=== PATIENT | female | born 1950 | race Hispanic/Latino ===

== ENCOUNTER 2021-08-23 06:24 | Day surgery (SDC) | payer MEDICARE ==
[2021-08-23 07:51] LABS: Mean Corpuscular HGB Conc 35 % (30-34); Mean Corpuscular Volume 87 fl (79-97); Platelet Count 193 K/mm3 (140-440); Red Blood Count 4.62 M/mm3 (3.65-5.03)
[2021-08-23 07:59] LABS: INR 0.93 (0.87-1.13)
[2021-08-23] MEDS ORDERED: SODIUM CHLORIDE 0.9% 500 ML 500 ML IV SCH (08:00)
[2021-08-23 08:09] LABS: Blood Urea Nitrogen 22 mg/dL (7-17); Calcium 9.3 mg/dL (8.4-10.2); Hemolysis Index 8
[2021-08-23 08:14] LABS: BUN/Creatinine Ratio 37
[2021-08-23] MEDS ORDERED: HEPARIN/NS 5000 UNIT/500ML 1,000 ML IR ONE (08:31)
[2021-08-23] MEDS ORDERED: NITROGLYCERIN SYRINGE 3 ML ONE (08:32)
[2021-08-23] MEDS: MIDAZOLAM 2 MG/2 ML INJ ONE ×2 (09:05→09:19)
[2021-08-23] MEDS: fentaNYL 100 MCG/2 ML INJ ONE ×2 (09:05→09:20)
[2021-08-23] MEDS: LIDOCAINE (1%) 10 MG/1 ML VIAL 20 ML MDV ONE ×2 (09:06→09:21)
[2021-08-23] MEDS: HEPARIN 10,000 UNITS/10 ML VIAL ONE ×2 (09:09→09:22)
[2021-08-23] MEDS: VERAPAMIL 5 MG/2 ML INJ ONE ×2 (09:11→09:22)
[2021-08-23] MEDS ORDERED: HYDROcodone/ACETAMINOPHEN 5-325 MG TAB PO PRN (10:00)
[2021-08-23] MEDS ORDERED: traMADol 50 MG TAB PO PRN (10:00)
--- NOTE | 2021-08-23 11:08 | Short Stay Summary ---
Short Stay Documentation Date of service: 08/23/21 - History H&P: obtained from office - Allergies and Medications Current Medications: Allergies hydrochlorothiazide [From Benicar HCT] Allergy (Unknown, Unverified 08/23/21 06:57) Unknown olmesartan [From Benicar HCT] Allergy (Unknown, Unverified 08/23/21 06:57) Unknown Home Medications Medication Instructions Recorded Confirmed Last Taken Type Ascorbic Acid [Vitamin C with Rita 1,000 mg PO DAILY 08/23/21 08/23/21 08/22/21 History Hips] 1 tab Aspirin [Aspirin BABY CHEW TAB] 81 mg PO DAILY 08/23/21 08/23/21 08/22/21 History 1 tab Baclofen [Lioresal] 10 mg PO DAILY 08/23/21 08/23/21 Unknown History Bumetanide 1 mg PO DAILY 08/23/21 08/23/21 08/22/21 History 1 tab Bumetanide 1 tab PO DAILY 08/23/21 08/23/21 08/22/21 History 1 tab Clopidogrel [Plavix] 75 mg PO QDAY 08/23/21 08/23/21 08/22/21 History 1 tab Clopidogrel [Plavix] 75 mg PO QDAY 08/23/21 08/23/21 08/22/21 History 1 tab Fish Oil/Borage/Flax/Om3,6,9 1 2,000 mg PO DAILY 08/23/21 08/23/21 08/22/21 History [[place] 3-6-9 1,200 mg Softgel] 1 tab Gabapentin [Neurontin] 300 mg PO Q8HR 08/23/21 08/23/21 Unknown History Levothyroxine [Synthroid] 88 mcg PO QAM 08/23/21 08/23/21 08/23/21 History 1 tab Meloxicam [Mobic] 7.5 mg PO QDAY 08/23/21 08/23/21 Unknown History Potassium Chloride [K-Dur] 20 meq PO QDAY 08/23/21 08/23/21 08/22/21 History 1 tab carvediloL [Coreg] 6.25 mg PO BID 08/23/21 08/23/21 08/22/21 History 2 tabs Active Medications Hydrocodone Bitart/Acetaminophen (Hydrocodone/Acetaminophen 5-325 Mg Tab) 1 each PO Q4H PRN PRN Reason: Pain, Moderate (4-6) Sodium Chloride (Nacl 0.9% 500 Ml) 500 mls @ 50 mls/hr IV DIRECT [place] Stop: 08/23/21 18:00 Last Admin: 08/23/21 09:13 Dose: 0 mls Tramadol HCl (Tramadol 50 Mg Tab) 50 mg PO Q4H PRN PRN Reason: Pain, Mild (1-3) - Physical exam Integumentary: other (Dressing clean dry and intact with no signs of bleeding or hematoma) - Brief post op/procedure progress note Date of procedure: 08/23/21 Pre-op diagnosis: Claudication Post-op diagnosis: same Anesthesia: local Estimated blood loss: minimal - Hospital course Hospital course: Patient presents today for peripheral angiogram. Patient procedure well with no complication. See report for full details. Patient to be discharged home with follow-up in the office as an outpatient. Plan of care discussed with patient who verbalized understanding and acknowledgment - Disposition Condition at discharge: Good Disposition: 01 HOME / SELF CARE / HOMELESS - Discharge Diagnoses (1) Claudication in peripheral vascular disease Status: Acute (2) Coronary artery disease Status: Acute (3) Hypertension Status: Acute (4) Hyperlipidemia Status: Acute (5) S/P CABG (coronary artery bypass graft) Status: Acute (6) Morbidly obese Status: Acute Short Stay Discharge Plan Activity: advance as tolerated Diet: low fat, low cholesterol, low salt Wound: keep clean and dry, per your surgeon's advice Follow up with: DR DENNIS [Other] - 7 Days QUIQUE SCALES MD [Staff Physician] - 09/20/21 1:45 pm (Patient has a follow- up appointment on 09/20/2021 at 1:45 PM in [place] location. Phone #[phone])
--- NOTE | 2021-08-23 13:48 | Cardiac Catherization Report ---
DATE OF SERVICE: 08/23/2021 PERIPHERAL ANGIOGRAM CLINICAL INFORMATION: A 71-year-old female with morbid obesity, coronary artery disease with bypass, hypertension, hyperlipidemia, has claudication symptoms with abnormal monophasic flow in the left lower extremity. She is here for peripheral angiogram. Procedure was done with moderate sedation started at 9:00, finished at 9:15, 15 minutes of moderate sedation. DESCRIPTION OF PROCEDURE: Procedure was done via the right radial artery, sterile technique and local anesthesia. A 6-Macanese radial sheath inserted. Pigtail catheter was placed in distal abdominal aorta and runoff was done, which revealed bilateral renal arteries patent, distal abdominal aorta patent, right common iliac patent, right external and internal iliac patent, right CIRCUIT DESIGN ENGINEER patent, right SFA patent with 3-vessel runoff, left common iliac mid has an 80% lesion. Left external and internal iliac patent, left common femoral artery patent, left SFA patent with 3-vessel runoff. Catheter was taken over a guidewire. A 6-Macanese radial sheath was discontinued. Radial band applied. No hematoma, no bleeding. SUMMARY: 1. Bilateral renal arteries patent, distal abdominal aorta patent, left common iliac mid 80% lesion with left external and internal iliac patent, left common femoral artery patent, left SFA patent with 3-vessel runoff: 2. Right common iliac, internal iliac, external iliac and CIRCUIT DESIGN ENGINEER patent with right SFA and 3-vessel runoff patent with bilateral popliteal patent. 3. The patient has failed medical therapy on aspirin and Plavix. RECOMMENDATIONS: The patient will come for a staged BUTTON CUTTER of the left common iliac stenting. TID: [id number] RECEIPT: [id number] ENRIQUE/[place]/MELANIE
[2021-08-23 14:45] VITALS: BP 127/51
--- NOTE | 2021-08-25 15:10 | Electrocardiograph Report ---
[facility] Test Date: 2021-08-23 Test Time: 07:52:52 Pat Name: CALLIE SHELDON Department: Room: Gender: F Supervisor Braiding: FELIPE : 1950 Requested By: QUIQUE SCALES Order Number: [id number] Reading MD: Eric Ross Measurements Intervals [place] Rate: 63 P: 61 OR: 190 QRS: 17 QRSD: 107 T: 90 QT: 448 QTc: 459 Interpretive Statements Sinus rhythm No previous ECG available for comparison Electronically Signed On 08-25-2021 15:10:07 EDT by Eric Ross
== END 2021-08-23 06:25 | disposition home or self-care (01) ==
LOC: CATHLABREC 06:24
PROVIDERS: ATTEND Internal Medicine
DX: I70.212 Atherosclerosis of native arteries of extremities with intermittent claudication, left leg (principal); I25.10 Atherosclerotic heart disease of native coronary artery without angina pectoris; E78.49 Other hyperlipidemia; I10 Essential (primary) hypertension; E66.01 Morbid (severe) obesity due to excess calories; Z95.1 Presence of aortocoronary bypass graft; Z79.899 Other long term (current) drug therapy; Z79.82 Long term (current) use of aspirin; Z88.8 Allergy status to other drugs, medicaments and biological substances; Z68.41 Body mass index [BMI] 40.0-44.9, adult
CPT/HCPCS: 36200; 36415; 75716; 80048; 85027; 85610; 93005; 99156; C1894; J1644; J1815; J2250; J3010; J7040; Q9967

== ENCOUNTER 2021-09-20 07:13 | Day surgery (SDC) | payer MEDICARE ==
--- NOTE | 2021-09-19 15:56 | Short Stay Summary ---
Short Stay Documentation Date of service: 09/20/21 Narrative H&P: 71-year-old female with morbid obesity coronary arterial disease hypertension hyperlipidemia has claudication left leg. Ultrasound shows mild stenosis in the right leg calcified. Left leg appears to be monophasic flow with suspected a ortic iliac stenosis. Abdominal aorta reveals some mild hepatic steosis referral to gi. Negative stress test normal function echocardiogram will hold do a peripheral angiogram given patient's claudication symptoms despite dual antiplatelet therapy. Patient failed dual antiplatelet therapy. Patient had peripheral angiogram on 08/23/2021 to have left common iliac mid 80% lesion. Patient presents today for staged SENSOR TECHNICIAN - History Past Medical History: CAD, hypertension, hyperlipidemia, hypothyroidism, other (Chronic diastolic heart failure) Past Surgical History: CABG Social history: smoking (Former) - Allergies and Medications Current Medications: Allergies hydrochlorothiazide [From Benicar HCT] Allergy (Unknown, Unverified 08/23/21 06:57) Unknown olmesartan [From Benicar HCT] Allergy (Unknown, Unverified 08/23/21 06:57) Unknown Home Medications Medication Instructions Recorded Confirmed Last Taken Type Ascorbic Acid [Vitamin C with Rita 1,000 mg PO DAILY 08/23/21 08/23/21 08/22/21 History Hips] 1 tab Aspirin [Aspirin BABY CHEW TAB] 81 mg PO DAILY 08/23/21 08/23/21 08/22/21 History 1 tab Baclofen [Lioresal] 10 mg PO DAILY 08/23/21 08/23/21 Unknown History Bumetanide 1 mg PO DAILY 08/23/21 08/23/21 08/22/21 History 1 tab Bumetanide 1 tab PO DAILY 08/23/21 08/23/21 08/22/21 History 1 tab Clopidogrel [Plavix] 75 mg PO QDAY 08/23/21 08/23/21 08/22/21 History 1 tab Clopidogrel [Plavix] 75 mg PO QDAY 08/23/21 08/23/21 08/22/21 History 1 tab Fish Oil/Borage/Flax/Om3,6,9 1 2,000 mg PO DAILY 08/23/21 08/23/21 08/22/21 History [[place] 3-6-9 1,200 mg Softgel] 1 tab Gabapentin [Neurontin] 300 mg PO Q8HR 08/23/21 08/23/21 Unknown History Levothyroxine [Synthroid] 88 mcg PO QAM 08/23/21 08/23/21 08/23/21 History 1 tab Meloxicam [Mobic] 7.5 mg PO QDAY 08/23/21 08/23/21 Unknown History Potassium Chloride [K-Dur] 20 meq PO QDAY 08/23/21 08/23/21 08/22/21 History 1 tab carvediloL [Coreg] 6.25 mg PO BID 08/23/21 08/23/21 08/22/21 History 2 tabs - Physical exam General appearance: no acute distress Integumentary: no rash HEENT: PERRLA Heart: Regular rate, Normal S1, Normal S2 Gastrointestinal: normal Extremities: no ischemia, no No edema Neurological: Normal speech - Brief post op/procedure progress note Date of procedure: 09/20/21 Pre-op diagnosis: PVD Post-op diagnosis: same Anesthesia: local Estimated blood loss: 50-100ml - Hospital course Hospital course: Patient underwent successful SENSOR TECHNICIAN of left common iliac artery. Patient tolerated procedure well with no complication. Patient continue dual antiplatelet therapy and follow-up in the office - Disposition Condition at discharge: Good Disposition: 01 HOME / SELF CARE / HOMELESS - Discharge Diagnoses (1) Claudication in peripheral vascular disease Status: Acute (2) Coronary artery disease Status: Acute (3) Hyperlipidemia Status: Acute (4) Hypertension Status: Acute (5) Morbidly obese Status: Acute (6) S/P CABG (coronary artery bypass graft) Status: Acute Short Stay Discharge Plan Activity: advance as tolerated Diet: low fat, low cholesterol, low salt Wound: keep clean and dry, per your surgeon's advice Follow up with: QUIQUE SCALES MD [Staff Physician] - 7 Days (follow up on 10/10/2021 at 1 PM in our [place] location)
[2021-09-20] MEDS ORDERED: HEPARIN/NS 5000 UNIT/500ML 1,000 ML IR ONE (07:59)
[2021-09-20] MEDS ORDERED: SODIUM CHLORIDE 0.9% 500 ML 500 ML IV SCH (08:00)
[2021-09-20 08:02] LABS: INR 0.92 (0.87-1.13)
[2021-09-20 08:03] LABS: Partial Thromboplastin Time 35.3 Sec. (24.2-36.6)
[2021-09-20] MEDS: HEPARIN 10,000 UNITS/10 ML VIAL ONE ×2 (08:11→09:33)
[2021-09-20] MEDS: LIDOCAINE (1%) 10 MG/1 ML VIAL 20 ML MDV ONE ×2 (08:12→09:25)
[2021-09-20] MEDS ORDERED: HEPARIN/NS 5000 UNIT/500ML 500 ML IR ONE (08:32)
[2021-09-20] MEDS ORDERED: SODIUM CHLORIDE 0.9% 1000 ML 1,000 ML ONE (08:58)
[2021-09-20] MEDS ORDERED: fentaNYL 100 MCG/2 ML INJ ONE (09:03)
[2021-09-20] MEDS ORDERED: MIDAZOLAM 2 MG/2 ML INJ ONE (09:03)
[2021-09-20] MEDS ORDERED: HYDROcodone/ACETAMINOPHEN 5-325 MG TAB PO PRN (11:28)
[2021-09-20] MEDS ORDERED: traMADol 50 MG TAB PO PRN (11:28)
--- NOTE | 2021-09-20 12:00 | Cardiac Catherization Report ---
DATE OF SERVICE: 09/20/2021 PERIPHERAL INTERVENTIONAL REPORT CLINICAL INFORMATION: A 71-year-old female with morbid obesity, hypertension, hyperlipidemia, had claudication systems despite medical therapy with dual-antiplatelet therapy. Had previous angiogram revealed left common iliac focal 80% lesion, right common external and right SFA with 2-vessel runoff, left SFA patent with 3-vessel runoff, is here for staged EMERGENCY CARE ATTENDANT of the left common iliac artery. Procedure was done with moderate sedation, started at 09:25, finished at 9:55, 30 minutes of moderate sedation. DESCRIPTION OF PROCEDURE: Gained access to the left common femoral artery, sterile technique and local anesthesia, 5-Ecuadorean groin sheath placed and then changed out to a 7-Ecuadorean sheath and angiogram revealed a focal lesion in the left common iliac artery of 80% with initial pressure of 100/50 mmHg, past the lesion was 140/72, so significant gradient across the lesion. I then changed up to a 7-Ecuadorean Everbrite 23 cm sheath. Then, changed out for an Advantage wire through the lesion. Then ballooned with a 6.0 x 20 balloon at 12 atmospheres. Stented with a 9 x 37 Visi-Pro at 12 atmospheres. Then postdilated with a 10 x 40 balloon at 15 atmospheres. Excellent angiographic result. No dissection or perforation noted. Reduced stenosis from 90% down to 0% with zero gradient now. Sheath was placed in and sewn in. No hematoma, no bleeding. Wires were removed. SUMMARY: 1. Successful EMERGENCY CARE ATTENDANT of the left common iliac artery with a Visi-Pro 9 x 37 and postdilated with a 10 x 40. 2. Post-EMERGENCY CARE ATTENDANT care, to continue dual-antiplatelet therapy. TID: [id number] RECEIPT: [id number] ENRIQUE/MELVI/VAN
[2021-09-20 17:46] VITALS: BP 141/66
== END 2021-09-20 17:48 | disposition home or self-care (01) ==
LOC: CATHLABREC 07:13
PROVIDERS: ATTEND Internal Medicine
DX: I70.212 Atherosclerosis of native arteries of extremities with intermittent claudication, left leg (principal); I25.10 Atherosclerotic heart disease of native coronary artery without angina pectoris; I10 Essential (primary) hypertension; E78.5 Hyperlipidemia, unspecified; E66.01 Morbid (severe) obesity due to excess calories; Z95.1 Presence of aortocoronary bypass graft; Z88.8 Allergy status to other drugs, medicaments and biological substances; Z79.899 Other long term (current) drug therapy; Z79.82 Long term (current) use of aspirin; Z98.890 Other specified postprocedural states; Z68.41 Body mass index [BMI] 40.0-44.9, adult
CPT/HCPCS: 36415; 37221; 85610; 85730; 99156; 99157; C1725; C1769; C1876; C1894; J1644; J2250; J3010; J7030; Q9967